=== PATIENT | male | born 1975 | race Caucasian/White ===

== ENCOUNTER 2016-11-15 23:49 | Emergency (ER) | payer BC ==
[~2016-11-15] VITALS: Ht 172.7 cm; Wt 104.3 kg
[~2016-11-15 23:49] MED LIST: CIPRO 500MG TA500 MG PO; FLAGYL 500MG.500 MG PO; HYOSCYAMINE0.125 M1 PO; KEFLEX 500MG.500 MG PO; METOPROLOL SUCC25 M2 PO; ULTRAM 50 MG TA50 MG PO
--- NOTE | 2016-11-16 00:07 | Emergency Room Report ---
History of Present Illness Time Seen by MD Motta Presenting Problem in Triage Pt arrived:Walked Presenting Problem:C/O DIZZINESS AND DRY HEAVES TONIGHT. HEADACHE FOR 3 DAYS. HAS MISSED HIS B/P PILL X 2 DAYS BUT TOOK IT TONIGHT. STATES HE FEELS DRUNK. 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 N Clinical Suspician of Infection? N Mental Status: 1 - Regular (Normal Baseline) Sepsis Risk:Low Sepsis Risk Have you (or family members/close friends) recently traveled outside the [place]? N If Yes, where/when: Have you had exposure to infectious disease within the past month? N TB? Other? Specify: Comment The patient complains of dizziness and his balance being off since 9:00 tonight. He says that he seems to want to stumble to the RIGHT. He has associated dry heaves. It has not caused him to fall. He says that he has had a headache off and on for the past 3 days which he attributes to missing his blood pressure medication. He was able to get his blood pressure medication filled today and took it and he says he does not currently have a headache. He says he has had some pain in his RIGHT eye, but no visual disturbance, no diplopia. He denies numbness or weakness of his arms or legs. No speech problems. He says that he had some popping in his left ear last week but no current auditory symptoms. No prior history of vertigo or dizziness like this. He has hypertension, he does not have diabetes. States started at work tonight, increased stress at work. ALLERGIES Coded Allergies: No Known Allergies (05/01/16) Home Medications Reported Medications Metoprolol Succinate 25 MG PO DAILY #30 History Medical History General CAD? No Angina: No IA: No Hypertension? Yes Hyperlipidemia? No CHF? No DVT? No PE? No COPD? No Asthma? No Anemia? No GERD? No Gastric ulcers? No GI Bleed? No Hernia? No Thyroid Problems? No Hypothyroidism? No CVA? No Seizures? No Diabetes? No Renal Insuffiency? No End Stage Renal Disease? No UTI? No Stones? No BPH? No GB Disease: No Nephritic Syndrome? No Asplenia? No Hepatitis? No Sickle Cell Disease? No Arthritis? No Migraines? No Cataracts? No Glaucoma? No MRSA? No HIV? No TB? No Anxiety? No Depression? No Cancer? No Immunization Hx DT/Tetanus 5-10 YRS Surgical Hx Previous Surgery?N Social History Smoking Hx Smoker: Current Every Day Smoker Tobacco: Yes Type Cigarettes Packs/day 1 1/2 - 2 Packs Alcohol Alcohol: No Review of Systems All Other Systems Reviewed and Negative Constitutional denies fever Eyes see HPI, denies blindness, denies blurred vision ENT see HPI. Cardiovascular denies chest pain Gastrointestinal nausea, denies vomiting Psychiatric/Neurological see HPI, headache, denies numbness, denies weakness Physical Exam Vital Signs Vital Signs Date Time Temp Pulse Resp B/P Pulse O2 O2 Flow FiO2 Ox Delivery Rate 11/16 0039 98.0 65 18 116/76 97 11/15 2357 98.0 77 20 128/74 97 General Appearance normal appearance, WD/WN Eye Exam - bilateral eye normal exam, bilateral eye PERRL, bilateral eye EOMI Comment No nystagmus Ear, Nose, Throat hearing grossly normal, normal ENT inspection, tympanic membranes normal Neck normal inspection, non-tender, supple, full range of motion Respiratory Status Yes: trachea midline, chest symmetrical, non tender chest. No: respiratory distress. Lung Sounds bilateral: normal breath sounds, lungs clear. 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 Romberg normal. Gait steady. Mental status normal mood/affect Skin intact, normal color, warm/dry Medical Decision Making LABS/Meds/Orders Pt receiving controlled substance in ED? No Results/Orders Laboratory Tests 11/16/16 0029: Sodium 141, Potassium 4.0, Chloride 105, Carbon Dioxide 23, BUN 12, Creatinine 0.9, Estimated Creat Clear 158, Estimated GFR (MDRD) 93, Glucose 105, Calcium 8.9, Total Bilirubin 0.3, AST 17, ALT 29, Alkaline Phosphatase 81, Total Protein 7.2, Albumin 4.1, Globulin 3.1, Albumin/Globulin Ratio 1.3, WBC 11.0 H, RBC 4.82, Hgb 15.2, Hct 43.5, MCV 90.2, RDW 13.6, Plt Count 256, MPV 5.7 L, Gran % 78.6, Gran # 8.6 H, Lymphocytes % 15.7, Monocytes % 4.2, Eosinophils % 1.1, Basophils % 0.3, Lymphocytes # 1.7, Monocytes # 0.5, Eosinophils # 0.1, Basophils # 0.0, PUBS MCHC 34.9, MCH 31.5 H Current Medication Orders Sig/Carlos Manuel Start time Last Medication Dose Route Stop Time Status Admin Meclizine HCl 50 MG ONCE ONE 11/16 29 DC 11/16 PO 11/16 30 0036 Meclizine HCl 0 .STK-MED ONE 11/16 0028 DC .ROUTE Sodium Chloride 10 ML PRN PRN 11/16 0015 AC IV 11/17 0014 Orders Procedure Date/time Status DIET-NOTHING BY MOUTH 11/[address] HEAD W/O CONTRAST 11/[address] HEAD REQ 11/17 15 Complete IV SALINE LOCK 11/17 15 Active CBC WITH AUTO DIFF 11/17 15 Complete CHEM 12 PROFILE 11/17 15 Complete XRAY/CT/US XRAY/CT/US CT head Comment CT scan interpreted by [facility] radiologist. Faxed report received and reviewed: No acute intracranial abnormality. Scattered minimal mucosal thickening of RIGHT frontal, ethmoid sinuses. Progress - 12:55 AM: Recheck patient. He states he is feeling a little better. Discussed results. No significant findings. Departure Departure Disposition DC Home or Self Care(routine) Clinical Impression Primary Impression: Vertigo, peripheral Qualifiers: Laterality: unspecified laterality Qualified Code: H81.399 - Other peripheral vertigo, unspecified ear Condition STABLE Patient Instructions DI for Vertigo Additional Instructions Off work tonight. May return to work on Friday11/18/16 as scheduled. Additional instructions for VERTIGO: Return to the emergency department if worsening dizziness, severe headache, repetitive vomiting, loss of vision or double vision, numbness or weakness of arms or legs. Prescriptions Current Visit Scripts Meclizine Hcl (Meclizine Hydrochloride) 25 MG PO TIDP PRN dizziness #15 TAB ED Critical Care Critical Care No at 0051
[2016-11-16 00:36] LABS: HEMOGLOBIN 15.2 g/dL (14.1-18.0); LYMPH # 1.7 K/mm3 (0.7-4.5); LYMPH % 15.7 % (10-50)
[2016-11-16] MEDS ORDERED: MECLIZINE HYDRO25 MG PO (00:58)
[2016-11-16 01:01] VITALS: BP 116/76
--- NOTE | 2016-11-16 08:50 | RADIOLOGY REPORT PS360 ---
CT HEAD W/O CONTRAST COMPARISON: None HISTORY: Dizziness TECHNIQUE: Multiple axial scans obtained from base skull to the vertex and were performed without IV contrast. FINDINGS: The base of skull appears grossly normal, mastoids are clear. There are minimal inflammatory changes in the ethmoid sinuses and right frontal sinus. The ventricular system is normal. There is no ischemic infarct or bleed and there are no extra-axial fluid collections. There is no significant atrophy. Bony calvarium appears intact. IMPRESSION: Minimal sinus disease likely chronic, no acute intracranial pathology noted, I agree the [facility] report
== END 2016-11-16 01:08 | disposition home or self-care (01) ==
LOC: ER 23:49
PROVIDERS: Emergency Medicine
DX: H81.399 Other peripheral vertigo, unspecified ear (principal); I10 Essential (primary) hypertension